=== PATIENT | female | born 1950 | race Caucasian/White ===

== ENCOUNTER → 2016-11-19 | Outpatient (REF) | payer MEDICARE ==
[~2016-11-19] MED LIST: /ADVA50050; /ADVA50050 INH; /LOR25TA PO; /TIOT18INH; /TIOT18INH INH; ACEP650S PR; ACET-654 PO; ADV250INH INH; ALBUPOW25 XX; ALPR0.25 PO; ALTA10CA; AMOX875T2 PO; ASPI1TAB PO; ASPI81CH32 PO; ASPI81TA3 OR; ATROVENT; ATROVENT0.02% INH; BACT800T; BREO1INH INH; COMBVENT INH; DEPO; DIET; DOXY10CA PO; DRIS50002 PO; DULC10SU2 PR; DUONSOL NEB; ELIQ5TAB PO; ENEMENE3 PR; FAMO1TAB11 PO; FLUT22IN INH; FURO20TA2 PO; FURO40TA2 PO; GLUC4CHW PO; GLUC500T; GUAI100S7 PO; GUAI10EL PO; HYDR-4274 PO; HYDR25T PO; INSUDET SC; INSUHUMDS SC; IPRASOL4 INH; JANU100T PO; LASI40TA OR; LASI40TA PO; LEVA750T OR; LEVO125T3 PO; MAG400TA PO; METF1000 PO; MILKSUS PO; NICO14DI3; NYAM10003 EXT; O2; OXYGEN; PEPC1TAB4 PO; PERC7.5T12 PO; PERC7.5T8 OR; POTA10CA PO; POTA1TAB14 PO; POTA20TA PO; POTASSIUM OR; PRED10PA PO; PRED10TA PO; PRED10TA2; PRED10TA2 OR; PRED10TA2 PO; PRED20TA; PRED20TA OR; PRED20TAB PO; PRED25TA PO; PREDNISONE PO; PRIL20CA OR; PRIL20CA PO; PRIL40CA; SIMV40TA2 PO; SPIR1CAP IN; SYNT100T OR; SYNT100T PO; SYNT75TA; TESS100C PO; TRAM50TA2 PO; TRAZ25TA PO; TUMS500C PO; TYLE325T5 PO; VARE1TA OR; VENTAER IN; VIBR100C PO; VICO5TAB; VICO5TAB OR; VITAMIN D50000 UNT OR; VITMTA PO; ZITH500T PO; ZOCO20TA PO; ZOCO5TAB OR; [UNRECOGNIZED DRUG - CODE] IM; [UNRECOGNIZED DRUG - OTHER]; januvia PO; oxygen
== END ==
LOC: SKLAB5 12:14
PROVIDERS: ATTEND Family Medicine
DX: J02.9 Acute pharyngitis, unspecified (principal)

== ENCOUNTER → 2016-11-20 | Outpatient (REF) | payer MEDICARE ==
[2016-11-20 09:32] LABS: BASO % 0.3 % (0.0-1.0); EOS # 0.2 K/mm3 (0.0-0.50); EOS % 1.8 % (0.0-3.0); LARGE UNSTAINED CELL # 0.2 K/mm3 (0.0-0.4); LARGE UNSTAINED CELL % 1.8 % (0.0-4.0); LYMPH # 1.1 K/mm3 (1.5-4.5); LYMPH % 12.9 % (24.0-44.0); MEAN CORPUSCULAR HEMOGLOBIN 26.8 pg (27.0-33.0); MEAN CORPUSCULAR HGB CONC 32.3 g/dl (32.0-36.5); MEAN CORPUSCULAR VOLUME 82.9 fl (80.0-96.0); MONO # 0.5 K/mm3 (0.0-0.8); MONO % 5.6 % (0.0-5.0); NEUTROPHILS # 6.9 K/mm3 (1.8-7.7); NEUTROPHILS % 77.6 % (36.0-66.0); PLATELET COUNT, AUTOMATED 442 k/mm3 (150-450); RED CELL DISTRIBUTION WIDTH 12.2 % (11.5-14.5); WHITE BLOOD COUNT 8.9 K/mm3 (4.0-10.0)
[2016-11-20 09:43] LABS: CALCIUM LEVEL 9.5 MG/DL (8.8-10.2); CREATININE FOR GFR 1.65 MG/DL (0.55-1.02); POTASSIUM SERUM 3.7 MEQ/L (3.5-5.1)
== END ==
LOC: SKLAB5 08:59
PROVIDERS: ATTEND Family Medicine
DX: D64.9 Anemia, unspecified (principal)

== ENCOUNTER → 2016-12-18 | Outpatient (REF) | payer MEDICARE ==
[2016-12-18 07:53] LABS: BASO % 0.1 % (0.0-1.0); EOS # 0.1 K/mm3 (0.0-0.50); EOS % 1.1 % (0.0-3.0); LARGE UNSTAINED CELL # 0.2 K/mm3 (0.0-0.4); LARGE UNSTAINED CELL % 1.7 % (0.0-4.0); LYMPH # 1.5 K/mm3 (1.5-4.5); LYMPH % 15.4 % (24.0-44.0); MEAN CORPUSCULAR HGB CONC 32.2 g/dl (32.0-36.5); MEAN CORPUSCULAR VOLUME 83.8 fl (80.0-96.0); MONO # 0.6 K/mm3 (0.0-0.8); MONO % 6.9 % (0.0-5.0); NEUTROPHILS # 6.8 K/mm3 (1.8-7.7); NEUTROPHILS % 74.8 % (36.0-66.0); PLATELET COUNT, AUTOMATED 400 k/mm3 (150-450); RED CELL DISTRIBUTION WIDTH 13.4 % (11.5-14.5); WHITE BLOOD COUNT 9.1 K/mm3 (4.0-10.0)
[2016-12-18 08:10] LABS: CALCIUM LEVEL 8.9 MG/DL (8.8-10.2); CREATININE FOR GFR 2.01 MG/DL (0.55-1.02); GLOMERULAR FILTRATION RATE 26.3 (>45); POTASSIUM SERUM 3.2 MEQ/L (3.5-5.1)
== END ==
LOC: SKLAB5 08:35
PROVIDERS: ATTEND Family Medicine
DX: J44.9 Chronic obstructive pulmonary disease, unspecified (principal)

== ENCOUNTER → 2017-01-15 | Outpatient (REF) | payer MEDICARE ==
[~2017-01-15] MED LIST changes: +ALDA25TA2 PO; +AMLO25TA PO; +BUSP30TA PO; +GABA-283 PO; +GLIP5TAB8 PO; +METO5TA PO; +OMEP40CA2 PO; +PRED5CON PO; +SENN8.6T7 PO; +SING10TA32 PO
[2017-01-15 09:56] LABS: BASO % 0.2 % (0.0-1.0); EOS # 0.1 K/mm3 (0.0-0.50); LARGE UNSTAINED CELL # 0.1 K/mm3 (0.0-0.4); LARGE UNSTAINED CELL % 1.1 % (0.0-4.0); LYMPH # 1.5 K/mm3 (1.5-4.5); LYMPH % 16.8 % (24.0-44.0); MEAN CORPUSCULAR HEMOGLOBIN 27.3 pg (27.0-33.0); MEAN CORPUSCULAR HGB CONC 32.2 g/dl (32.0-36.5); MEAN CORPUSCULAR VOLUME 84.7 fl (80.0-96.0); MONO # 0.6 K/mm3 (0.0-0.8); MONO % 7.3 % (0.0-5.0); NEUTROPHILS # 6.2 K/mm3 (1.8-7.7); NEUTROPHILS % 73.7 % (36.0-66.0); PLATELET COUNT, AUTOMATED 434 k/mm3 (150-450); RED CELL DISTRIBUTION WIDTH 14.2 % (11.5-14.5); WHITE BLOOD COUNT 8.5 K/mm3 (4.0-10.0)
[2017-01-15 10:06] LABS: CREATININE FOR GFR 2.04 MG/DL (0.55-1.02); GLOMERULAR FILTRATION RATE 25.9 (>45); POTASSIUM SERUM 3.3 MEQ/L (3.5-5.1)
== END ==
LOC: SKLAB5 08:51
PROVIDERS: ATTEND Family Medicine
DX: R60.9 Edema, unspecified (principal); E11.9 Type 2 diabetes mellitus without complications; J96.10 Chronic respiratory failure, unspecified whether with hypoxia or hypercapnia

== ENCOUNTER 2017-01-20 10:38 | Emergency (ER) | payer MEDICARE ==
[~2017-01-20] VITALS: Ht 154.9 cm; Wt 91.2 kg
[~2017-01-20 10:38] MED LIST changes: -BSS with VANC/TOB/EPI for EYE CASES IR ONE; -CYCLOPENTOLATE 2% OPHTH SOLN OD ONE; -HEALON DUET (HEALON 10MG/ML 0.55ML & HEALON ENDOCOAT 30MG/ML 0.85ML) As Ordered ONE; -LIDOCAINE 1% SDV 5 ML VIAL As Ordered ONE; -LIDOCAINE 4% INJ 5 ML AMP OU ONE; -MOXIFLOXACIN IN BSS 0.25MG/0.25ML INTRACAMERAL INJ (OR EYE ONLY)(J2280) As Ordered ONE; -PHENYLEPHRINE 2.5% OPHTH SOL 2ML OD ONE; -POVIDONE-IODINE 5% OPHTH PREP SOL 30ML As Ordered ONE; -TRIAMCINOLONE PRES FR 40 MG/ML 1ML(TRIESENCE)(OR EYE ONLY)(J3300 PER 1MG) As Ordered ONE; -TROPICAMIDE 1% OPHTH SOLN 2 ML OD ONE
[2017-01-20 11:20] VITALS: BP 112/56
[2017-01-20 12:46] LABS: BASO % 0.2 % (0.0-1.0); EOS # 0.2 K/mm3 (0.0-0.50); EOS % 1.7 % (0.0-3.0); LARGE UNSTAINED CELL # 0.1 K/mm3 (0.0-0.4); LARGE UNSTAINED CELL % 1.3 % (0.0-4.0); LYMPH % 10.7 % (24.0-44.0); MEAN CORPUSCULAR HEMOGLOBIN 27.9 pg (27.0-33.0); MEAN CORPUSCULAR HGB CONC 32.5 g/dl (32.0-36.5); MEAN CORPUSCULAR VOLUME 85.8 fl (80.0-96.0); MONO # 0.5 K/mm3 (0.0-0.8); MONO % 5.3 % (0.0-5.0); NEUTROPHILS # 7.8 K/mm3 (1.8-7.7); NEUTROPHILS % 80.7 % (36.0-66.0); PLATELET COUNT, AUTOMATED 355 k/mm3 (150-450); RED CELL DISTRIBUTION WIDTH 14.2 % (11.5-14.5); WHITE BLOOD COUNT 9.6 K/mm3 (4.0-10.0)
--- NOTE | 2017-01-20 13:13 | REP ---
TWO VIEW CHEST: Two views of the chest are performed. There is cardiomegaly with venous hypertension and diffuse increased bilateral interstitial opacities, unchanged compared to multiple prior exams. Mediastinal silhouette is unchanged. IMPRESSION: Cardiomegaly with chronic diffuse bilateral interstitial opacities, stable compared to multiple prior exams, most recent of which is 10/14/2016. Signed by Benjamin Benavides MD 01/20/2017 08:11 P
[2017-01-20 13:21] LABS: ALBUMIN 3.9 GM/DL (3.2-5.2); ALBUMIN/GLOBULIN RATIO 1.22 (1.00-1.93); BILIRUBIN,DIRECT 0.1 MG/DL (0.0-0.2); BILIRUBIN,TOTAL 0.3 MG/DL (0.2-1.0); CALCIUM LEVEL 8.9 MG/DL (8.8-10.2); CREATININE FOR GFR 1.71 MG/DL (0.55-1.02); GLOMERULAR FILTRATION RATE 31.7 (>45); POTASSIUM SERUM 3.6 MEQ/L (3.5-5.1); TOTAL PROTEIN 7.1 GM/DL (6.4-8.2)
--- NOTE | 2017-01-21 09:20 | ECGEPIP ---
Stationary ECG Study [facility] - ED Test Date: 2017-01-20 Pat Name: ALTAGRACIA OLGUIN Department: Room: - Gender: F Salesperson Women'S Dresses: AVERY : 1950 Requested By: Sariah Monetiro Order Number: [id number] Reading MD: Sariah Monteiro Measurements Intervals [place] Rate: 92 P: 28 IN: 157 QRS: -21 QRSD: 146 T: 128 QT: 389 QTc: 482 Interpretive Statements SINUS RHYTHM POSSIBLE LEFT ATRIAL ENLARGEMENT LEFT BUNDLE BRANCH BLOCK PRIOR ATRIAL FIBRILLATION Electronically Signed On 01-21-2017 9:20:46 EST by Sariah Monteiro
== END 2017-01-20 14:53 | disposition home or self-care (01) ==
LOC: M ED 11:48
DX: R06.02 Shortness of breath (principal); Z87.891 Personal history of nicotine dependence

== ENCOUNTER → 2017-01-20 | Outpatient (CLI) | payer MEDICARE ==
[~2017-01-20] VITALS: Ht 162.6 cm; Wt 94.6 kg
[~2017-01-20] MED LIST changes: +BSS with VANC/TOB/EPI for EYE CASES IR ONE; +CYCLOPENTOLATE 2% OPHTH SOLN OD ONE; +HEALON DUET (HEALON 10MG/ML 0.55ML & HEALON ENDOCOAT 30MG/ML 0.85ML) As Ordered ONE; +LIDOCAINE 1% SDV 5 ML VIAL As Ordered ONE; +LIDOCAINE 4% INJ 5 ML AMP OU ONE; +MOXIFLOXACIN IN BSS 0.25MG/0.25ML INTRACAMERAL INJ (OR EYE ONLY)(J2280) As Ordered ONE; +PHENYLEPHRINE 2.5% OPHTH SOL 2ML OD ONE; +POVIDONE-IODINE 5% OPHTH PREP SOL 30ML As Ordered ONE; +TRIAMCINOLONE PRES FR 40 MG/ML 1ML(TRIESENCE)(OR EYE ONLY)(J3300 PER 1MG) As Ordered ONE; +TROPICAMIDE 1% OPHTH SOLN 2 ML OD ONE
[2017-01-20 10:41] VITALS: BP 112/56
== END ==
LOC: M SDC 08:20 → EDSTATUS 08:30
PROVIDERS: ATTEND Ophthalmology
DX: H26.9 Unspecified cataract (principal); Z53.09 Procedure and treatment not carried out because of other contraindication

== ENCOUNTER → 2017-01-23 | Outpatient (REF) | payer MEDICARE | LOC: SKLAB5 10:23 | PROVIDERS: ATTEND Family Medicine | DX: R05 Cough (principal); R06.02 Shortness of breath; J02.9 Acute pharyngitis, unspecified; R51 Headache ==

== ENCOUNTER → 2017-02-12 | Outpatient (REF) | payer MEDICARE ==
[2017-02-12 13:16] LABS: CALCIUM LEVEL 9.3 MG/DL (8.8-10.2); CREATININE FOR GFR 2.29 MG/DL (0.55-1.02); GLOMERULAR FILTRATION RATE 22.6 (>45); POTASSIUM SERUM 3.9 MEQ/L (3.5-5.1)
[2017-02-12 14:10] LABS: MEAN CORPUSCULAR HEMOGLOBIN 27.9 pg (27.0-33.0); MEAN CORPUSCULAR HGB CONC 31.2 g/dl (32.0-36.5); MEAN CORPUSCULAR VOLUME 89.2 fl (80.0-96.0); RED CELL DISTRIBUTION WIDTH 14.6 % (11.5-14.5); WHITE BLOOD COUNT 10.3 K/mm3 (4.0-10.0)
== END ==
LOC: SKLAB5 11:22
PROVIDERS: ATTEND Family Medicine
DX: D64.9 Anemia, unspecified (principal); I50.9 Heart failure, unspecified

== ENCOUNTER → 2017-03-18 | Outpatient (REF) | payer MEDICARE, MEDICAID ==
[2017-03-18 15:34] LABS: BASO % 0.1 % (0.0-1.0); EOS # 0.1 K/mm3 (0.0-0.50); EOS % 0.5 % (0.0-3.0); LARGE UNSTAINED CELL # 0.1 K/mm3 (0.0-0.4); LYMPH # 0.8 K/mm3 (1.5-4.5); LYMPH % 5.2 % (24.0-44.0); MEAN CORPUSCULAR HEMOGLOBIN 28.4 pg (27.0-33.0); MEAN CORPUSCULAR HGB CONC 33.1 g/dl (32.0-36.5); MEAN CORPUSCULAR VOLUME 85.7 fl (80.0-96.0); MONO # 0.6 K/mm3 (0.0-0.8); MONO % 4.3 % (0.0-5.0); NEUTROPHILS # 12.1 K/mm3 (1.8-7.7); NEUTROPHILS % 88.9 % (36.0-66.0); PLATELET COUNT, AUTOMATED 422 k/mm3 (150-450); RED CELL DISTRIBUTION WIDTH 12.8 % (11.5-14.5); WHITE BLOOD COUNT 13.6 K/mm3 (4.0-10.0)
[2017-03-18 15:51] LABS: ALBUMIN 3.9 GM/DL (3.2-5.2); ALBUMIN/GLOBULIN RATIO 0.98 (1.00-1.93); BILIRUBIN,TOTAL 0.3 MG/DL (0.2-1.0); CALCIUM LEVEL 8.9 MG/DL (8.8-10.2); CREATININE FOR GFR 3.07 MG/DL (0.55-1.02); GLOMERULAR FILTRATION RATE 16.1 (>45); POTASSIUM SERUM 4.2 MEQ/L (3.5-5.1); TOTAL PROTEIN 7.9 GM/DL (6.4-8.2)
== END ==
LOC: SKLAB5 14:31
PROVIDERS: ATTEND Family Medicine
DX: R41.0 Disorientation, unspecified (principal)

== ENCOUNTER → 2017-03-19 | Outpatient (REF) | payer MEDICARE, MEDICAID ==
[2017-03-19 08:36] LABS: BASO % 0.1 % (0.0-1.0); EOS # 0.1 K/mm3 (0.0-0.50); EOS % 1.1 % (0.0-3.0); LARGE UNSTAINED CELL # 0.1 K/mm3 (0.0-0.4); LYMPH # 0.8 K/mm3 (1.5-4.5); LYMPH % 6.2 % (24.0-44.0); MEAN CORPUSCULAR HEMOGLOBIN 28.3 pg (27.0-33.0); MEAN CORPUSCULAR HGB CONC 33.3 g/dl (32.0-36.5); MONO # 0.6 K/mm3 (0.0-0.8); MONO % 5.1 % (0.0-5.0); NEUTROPHILS # 9.5 K/mm3 (1.8-7.7); NEUTROPHILS % 86.5 % (36.0-66.0); PLATELET COUNT, AUTOMATED 496 k/mm3 (150-450); RED CELL DISTRIBUTION WIDTH 12.7 % (11.5-14.5)
[2017-03-19 09:11] LABS: CALCIUM LEVEL 8.8 MG/DL (8.8-10.2); CREATININE FOR GFR 2.78 MG/DL (0.55-1.02); GLOMERULAR FILTRATION RATE 18.1 (>45)
== END ==
LOC: SKLAB5 02:04
PROVIDERS: ATTEND Family Medicine
DX: E86.0 Dehydration (principal)